=== PATIENT | female | born 1975 | race Caucasian/White ===

== ENCOUNTER 2016-05-23 10:18 | Emergency (ER) ==
[2016-05-23 10:31] VITALS: BP 138/88; TEMP 99.1; BMI 30.4
[2016-05-23] MEDS ORDERED: TORADOL IM STA (11:06)
--- NOTE | 2016-05-23 11:10 | ED.PDOC ---
General ED Provider: Dr. ROZINA GARRISON Chief Complaint: Shoulder Pain/Injury Stated Complaint: shoulder pain Time Seen by Physician: 10:20 (moving furniture) Mode of Arrival: Walk-In Information Source: Patient Exam Limitations: No limitations [facility] and Triage Documentation Reviewed and Agree: Yes Trauma/Injury Complaint Exam - Trauma Complaint/Exam Location of Pain or Injury: Reports: Other (right shoulder ) Symptoms Are: Still present Timing of Treatment: Hours Initial Severity: Moderate Current Severity: Moderate Aggravating: Reports: None Alleviating: Reports: None Associated Signs and Symptoms: Denies: LOC, Confusion, Memory loss, Lethargy, Vomiting, Bleeding, Bruising (occured after moving funiture 1 day ago), Swelling , Extremity disuse, Painful respiration, Hoarseness, Dysphagia, Hemoptysis, Significant blood loss Review of Systems - Review Of Systems Constitutional: Reports: No symptoms Eyes: Reports: No symptoms Ears, Nose, Mouth, Throat: Reports: No symptoms Respiratory: Reports: No symptoms Cardiac: Reports: No symptoms GI: Reports: No symptoms : Reports: No symptoms Musculoskeletal: Reports: Joint pain (left shoulder ) Skin: Reports: No symptoms Neurological: Reports: No symptoms Endocrine: Reports: No symptoms Hematologic/Lymphatic: Reports: No symptoms All Other Systems: Reviewed and Negative Past Medical History - Past Medical History Endocrine: Reports: None Cardiovascular: Reports: None Respiratory: Reports: None Hematological: Reports: None Gastrointestinal: Reports: Other (IBS) Genitourinary: Reports: None Neuro/Psych: Reports: Other (RLS) Musculoskeletal: Reports: None Cancer: Reports: None Last Menstrual Period: 2 weeks - Surgical History General Surgical History: Reports: ( X 1) - Family History Family History: Reports: Hypertension, Other (chol) - Social History Smoking Status: Never smoker Hx Substance Use: No Alcohol Screening: None Physical Exam - Physical Exam Appearance: Well-appearing, No pain distress, Well-nourished Eyes: MARIA L, EOMI, Conjunctiva clear ENT: Ears normal, Nose normal, Oropharynx normal Respiratory: Airway patent, Breath sounds clear, Breath sounds equal, Respirations nonlabored Cardiovascular: RRR, Pulses normal, No rub, No murmur GI/: Soft, Nontender, No masses, Bowel sounds normal, No Organomegaly Musculoskeletal: Normal strength, ROM intact, No edema, No calf tenderness Skin: Warm, Dry, Normal color Neurological: Sensation intact, Motor intact, Reflexes intact, Cranial nerves intact, Alert, Oriented Psychiatric: Affect appropriate, Mood appropriate Critical Care Note - Critical Care Note Total Time (mins): 0 Course - Course Orders, Labs, Meds: Orders Category Date Time Status Shoulder immobilizer [ED SPLINT APPLICATION] .ONCE EMERGENCY 05/23/16 11:05 Ordered Ketorolac Tromethamine [Toradol] MEDS 05/23/16 11:06 Stop Req 30 mg IM ONCE STA Vital Signs: Temp Pulse Resp BP Pulse Ox 05/23/16 10:19 99.1 F 73 20 138/88 98 Departure - Departure Time of Disposition: 11:10 Disposition: HOME SELF-CARE Discharge Problem: Shoulder pain Instructions: Shoulder Sprain (ED), Arthralgia (ED) Condition: Good Pt referred to PMD for follow-up: No Prescriptions: Hydrocodone/Acetaminophen [[place] 5-325 Tablet] 1 each PO Q6HR PRN #14 tablet PRN Reason: PAIN Allergies/Adverse Reactions: Allergies No Known Allergies Allergy (Verified 05/23/16 10:25) Home Medications: Ambulatory Orders Acetaminophen [Tylenol] 325 mg PO Q4HR PRN 08/31/14 Ibuprofen 200 mg PO Q6HR PRN 08/31/14 Hydrocodone/Acetaminophen [[place] 5-325 Tablet] 1 each PO Q6HR PRN #14 tablet 02/27
== END 2016-05-23 11:32 | disposition home or self-care (01) ==
LOC: ED 10:18
DX: M25.511 Pain in right shoulder (principal); X50.9XXA Other and unspecified overexertion or strenuous movements or postures, initial encounter
CPT/HCPCS: 99282

== ENCOUNTER 2016-08-07 11:57 | Outpatient (CLI) ==
[2016-08-07 12:24] LABS: FLU INTERNAL QC INTERNAL QC VALID; RAPID FLU A NEGATIVE (NEGATIVE); RAPID FLU B NEGATIVE (NEGATIVE)
== END 2016-08-07 11:58 | disposition home or self-care (01) ==
LOC: LAB 11:57
PROVIDERS: ATTEND Nurse Practitioner Family
DX: R50.9 Fever, unspecified (principal); R52 Pain, unspecified; R53.1 Weakness
CPT/HCPCS: 87651; 87804; 87880

== ENCOUNTER 2017-04-27 08:28 | Outpatient (CLI) ==
[2017-04-27 09:16] LABS: BASOPHILS # (AUTO) 0.1 K/uL (0-0.2); BASOPHILS % (AUTO) 1.2 % (0.0-3.0); EOSINOPHILS # (AUTO) 0.1 K/ul (0.0-0.7); EOSINOPHILS % (AUTO) 1.6 % (0.0-7.0); HEMATOCRIT 39.3 % (37.0-47.0); HEMOGLOBIN 12.8 g/dl (12.0-16.0); IMMATURE GRANULOCYTE % (AUTO) 0.2 % (0.0-5.0); LYMPHOCYTES # (AUTO) 1.5 K/uL (0.60-3.4); LYMPHOCYTES % (AUTO) 26.1 (10.0-50.0); MEAN CORPUSCULAR HEMOGLOBIN 28.9 pg (27.0-31.0); MEAN CORPUSCULAR HGB CONC 32.6 (31.8-35.4); MEAN CORPUSCULAR VOLUME 88.7 fl (81.0-99.0); MONOCYTES # (AUTO) 0.4 K/uL (0.4-2.0); MONOCYTES % (AUTO) 6.5 (0-10); NEUTROPHILS # (AUTO) 3.7 K/ul (2.0-6.9); NEUTROPHILS % (AUTO) 64.4; PLATELET COUNT 192 10^3/uL (140-440); RED BLOOD COUNT 4.43 10^6/ul (4.20-5.40); WHITE BLOOD COUNT 5.71 K/ul (4.6-10.2)
[2017-04-27 09:57] LABS: ALBUMIN 3.8 g/dL (3.4-5.0); ALBUMIN/GLOBULIN RATIO 1.19; ANION GAP 13.2; BILIRUBIN,TOTAL 1.48 mg/dL (0.00-1.20); BUN/CREATININE RATIO 21.51; CALCIUM 9.3 mg/dL (8.2-10.2); CHOL/HDL RATIO 4.1 (4.5-5.5); CREATININE 0.79 mg/dL (0.60-1.30); POTASSIUM 4.2 mmol/L (3.5-5.10)
== END 2017-04-27 08:29 | disposition home or self-care (01) ==
LOC: CAR 08:28
PROVIDERS: ATTEND Nurse Practitioner Family
DX: Z00.00 Encounter for general adult medical examination without abnormal findings (principal); R60.9 Edema, unspecified
CPT/HCPCS: 36415; 80053; 80061; 84443; 85025; 93005; 93010

== ENCOUNTER 2017-07-31 00:02 | Emergency (ER) ==
[2017-07-31 00:08] VITALS: BP 120/76; TEMP 98.6; BMI 35.2
[2017-07-31] MEDS ORDERED: DILAUDID 2 MG/ML SYRINGE IM STA (00:08)
[2017-07-31] MEDS ORDERED: SODIUM CHLORIDE 1,000 ML IV STA (00:08)
[2017-07-31] MEDS ORDERED: TORADOL IVP STA (00:08)
[2017-07-31] MEDS ORDERED: ZOFRAN 4 MG/2 ML IVP STA (00:08)
[2017-07-31] MEDS ORDERED: DILAUDID 1 MG/ML SYRINGE IVP STA (00:17)
--- NOTE | 2017-07-31 00:21 | ED.PDOC ---
General ED Provider: Dr. COSMO WINSLOW Chief Complaint: Abdominal Pain Stated Complaint: Patient is a 42 year old female who has a history of thickening of the uterus with dysfunctional uterine bleeding. She saw her OBGYN who told her to try a medication which she did but did not help. She went to see him today for severe constant suprapubic cramping that would not stop and was placed on [place] which she too but did not help. She is now scheduled to have a hysterectomy. Pain was intolorable tonight hence came to the ER. Time Seen by Physician: 00:18 Mode of Arrival: Walk-In Information Source: Patient Exam Limitations: No limitations [facility] Nursing and Triage Documentation Reviewed and Agree: Yes Reviewed sepsis parameters & appropriate labs ordered?: No System Inflammatory Response Syndrome: Not Applicable Sepsis Protocol: For patient's 13 years and over: Temp is 96.8 and below OR 101 and greater Pulse >90 BPM Resp >20/minute Acutely Altered Mental Status Are patient's symptoms suggestive of a new infection, such as: -Pneumonia -Skin, Soft Tissue -Endocarditis -UTI -Bone, Joint Infection -Implantable Device -Acute Abdominal Infection -Wound Infection -Meningitis -Blood Stream Catheter Infection -Unknown System Inflammatory Response Syndrome: Not Applicable GI Complaint Exam - Abdominal Pain Complaint/Exam Onset: Gradual Duration: few days ago Symptoms Are: Still present Timing: Constant Initial Severity: Moderate Current Severity: Severe Location of Pain: Suprapubic Character: Reports: Cramping Associated Signs and Symptoms: Reports: Nausea. Denies: Diaphoresis, Fever, Cough, Chest pain, Dizziness, Back pain, Constipation, Blood in stool, Dysuria, Urinary frequency, Decreased urine output, Decreased appetite, Vaginal bleeding , Vaginal discharge, Vomiting, Diarrhea, Sore throat, Decreased activity Related History: Reports: Similar episode [employer] History: Denies: Ectopic, Ovarian cyst, PID AAA Risk Factors: Reports: None Cardiac Risk Factors: Reports: None Ectopic Risk Factors: Reports: Tubal ligation Ovarian Torsion Risk Factors: Reports: Tubal ligation. Denies: Hysterectomy, w/ hx PID Surgical Obstruction Risk Factors: Reports: None Related Surgical History: Reports: Tubal ligation. Denies: Cholecystectomy, Appendectomy, AAA Repair, Gastric Bypass, Bowel Resection, Laparoscopy, Kidney Stones, ASHTYN, BSO Patient Rh Status: Unknown Abdominal Findings: Absent: Rebound tenderness (but diffuse tenderness to palpation. ) Review of Systems - Review Of Systems Constitutional: Reports: Loss of appetite Eyes: Reports: No symptoms Ears, Nose, Mouth, Throat: Reports: No symptoms Respiratory: Reports: No symptoms Cardiac: Reports: No symptoms GI: Reports: Abdominal pain, Nausea : Reports: No symptoms Musculoskeletal: Reports: No symptoms Skin: Reports: No symptoms Neurological: Reports: Anxiety Endocrine: Reports: No symptoms Hematologic/Lymphatic: Reports: No symptoms All Other Systems: Reviewed and Negative Past Medical History - Past Medical History Endocrine: Reports: None Cardiovascular: Reports: None Respiratory: Reports: None Hematological: Reports: None Gastrointestinal: Reports: Other (IBS) Genitourinary: Reports: Other (Thick uterus ) Neuro/Psych: Reports: Other (RLS) Musculoskeletal: Reports: None Cancer: Reports: None Last Menstrual Period: 1 MONTH AGO - Surgical History General Surgical History: Reports: Tubal ligation, ( X 1) - Family History Family History: Reports: Hypertension, Other (chol) - Social History Smoking Status: Never smoker Hx Substance Use: No Alcohol Screening: None - Immunizations Tetanus Shot up to Date: No Physical Exam - Physical Exam Appearance: Ill-appearing, Obese Ill-appearing: Mild Pain Distress: Severe Eyes: MARIA L, EOMI, Conjunctiva clear Neck: Supple Respiratory: Airway patent, Breath sounds clear, Breath sounds equal, Respirations nonlabored Cardiovascular: RRR, Pulses normal, No rub, No murmur GI/: Soft, Tender (diffusely worse on the suprapubic area) Musculoskeletal: Normal strength, ROM intact, No edema, No calf tenderness Skin: Warm, Dry, Normal color Neurological: Sensation intact, Motor intact, Reflexes intact, Cranial nerves intact, Alert, Oriented Psychiatric: Anxious Interpretation - Radiology Interpretation Radiology Interpretation By: ED Physician Radiology Results: No acute changes Exam Interpreted: CT Scan Re-Evaluation - Re-Evaluation Time of Re-Evaluation: 01:35 Status: Improved Pain Level: gone Critical Care Note - Critical Care Note Total Time (mins): 0 Course - Course Hematology/Chemistry: 07/31/17 00:20 07/31/17 00:20 Orders, Labs, Meds: Lab Review 07/31/17 07/31/17 07/31/17 00:20 00:20 00:20 WBC 11.96 H RBC 4.05 L Hgb 12.0 Hct 36.2 L MCV 89.4 MCH 29.6 MCHC 33.1 RDW Coeff of Giovanni 12.7 Plt Count 177 Immature Gran % (Auto) 0.4 Neut % (Auto) 83.2 Lymph % (Auto) 11.0 Maury % (Auto) 4.3 Eos % (Auto) 0.6 Baso % (Auto) 0.5 Immature Gran # (Auto) 0.1 Neut # (Auto) 9.9 H Lymph # (Auto) 1.3 Maury # (Auto) 0.5 Eos # (Auto) 0.1 Baso # (Auto) 0.1 Sodium 140 Potassium 3.7 Chloride 105 Carbon Dioxide 26 Anion Gap 12.7 BUN 11 Creatinine 0.78 Estimated GFR (MDRD) 81.00 BUN/Creatinine Ratio 14.10 Glucose 120 H Calcium 9.2 Total Bilirubin 0.9 AST 15 ALT 23 Alkaline Phosphatase 94 Total Protein 6.5 Albumin 3.5 Globulin 3.0 Albumin/Globulin Ratio 1.17 Amylase 20 L Lipase 11 Urine Color Yellow Urine Clarity Clear Urine pH 5.0 Ur Specific [place] >=1.030 Urine Protein Trace Urine Glucose (UA) Negative Urine Ketones Trace Urine Blood Negative Urine Nitrite Negative Urine Bilirubin 1+ Urine Urobilinogen 1.0 Ur Leukocyte Esterase Negative Urine Microscopic WBC 0-2 Ur Squamous Epith Cells 5-10 Urine Bacteria Trace Urine Mucus 2+ Urine Test 07/31/17 00:20 WBC RBC Hgb Hct MCV MCH MCHC RDW Coeff of Giovanni Plt Count Immature Gran % (Auto) Neut % (Auto) Lymph % (Auto) Maury % (Auto) Eos % (Auto) Baso % (Auto) Immature Gran # (Auto) Neut # (Auto) Lymph # (Auto) Maury # (Auto) Eos # (Auto) Baso # (Auto) Sodium Potassium Chloride Carbon Dioxide Anion Gap BUN Creatinine Estimated GFR (MDRD) BUN/Creatinine Ratio Glucose Calcium Total Bilirubin AST ALT Alkaline Phosphatase Total Protein Albumin Globulin Albumin/Globulin Ratio Amylase Lipase Urine Color Urine Clarity Urine pH Ur Specific [place] Urine Protein Urine Glucose (UA) Urine Ketones Urine Blood Urine Nitrite Urine Bilirubin Urine Urobilinogen Ur Leukocyte Esterase Urine Microscopic WBC Ur Squamous Epith Cells Urine Bacteria Urine Mucus Urine Test Negative Orders Category Date Time Status ED IV/MEDIPORT/POWERPORT .ONCE EMERGENCY 07/31/17 00:08 Active AMYLASE Stat LAB 07/31/17 00:20 Completed CBC W/ AUTO DIFF Stat LAB 07/31/17 00:20 Completed COMPREHENSIVE METABOLIC PANEL Stat LAB 07/31/17 00:20 Completed LIPASE Stat LAB 07/31/17 00:20 Completed UA [URINALYSIS C & S IF INDICATED] Stat LAB 07/31/17 00:20 Completed URINE Stat LAB 07/31/17 00:20 Completed 0.9 % Sodium Chloride [Saline Flush] MEDS 07/31/17 00:08 Ordered 1 syr IVF PRN PRN Hydromorphone HCl [Dilaudid 1 mg/ml Syringe] MEDS 07/31/17 00:17 Discontinued 1 mg IVP ONCE STA Ketorolac Tromethamine [Toradol] MEDS 07/31/17 00:08 Discontinued 30 mg IVP ONCE STA Ondansetron HCl/Pf [Zofran 4 mg/2 ml] MEDS 07/31/17 00:08 Discontinued 4 mg IVP ONCE STA Sodium Chloride 0.9% [Sodium Chloride] 1,000 ml MEDS 07/31/17 00:[address] ABD/PEL WO RENAL STONE PROT Stat RADS 07/31/17 00:06 Completed Medications Generic Name Dose Route Start Last Admin Trade Name Freq PRN Reason Stop Dose Admin Sodium Chloride 1 syr 07/31/17 00:08 Saline Flush IVF PRN PRN To flush IV Discontinued Medications Generic Name Dose Route Start Last Admin Trade Name Freq PRN Reason Stop Dose Admin Hydromorphone HCl 1 mg 07/31/17 00:17 07/31/17 00:59 Dilaudid 1 Mg/Ml Syringe IVP 07/31/17 00:18 1 mg ONCE STA Administration Sodium Chloride 1,000 mls @ 1,000 mls/hr 07/31/17 00:08 07/31/17 00:58 Sodium Chloride IV 07/31/17 01:07 1,000 mls/hr BOLUS STA Administration Ketorolac Tromethamine 30 mg 07/31/17 00:08 07/31/17 00:58 Toradol IVP 07/31/17 00:09 30 mg ONCE STA Administration Ondansetron HCl 4 mg 07/31/17 00:08 07/31/17 00:58 Zofran 4 Mg/2 Ml IVP 07/31/17 00:09 4 mg ONCE STA Administration Vital Signs: Temp Pulse Resp BP Pulse Ox 07/31/17 00:02 98.6 F 81 18 120/76 98 Departure - Departure Time of Disposition: 01:24 Disposition: HOME SELF-CARE Discharge Problem: Abdominal pain, Endometrial thickening on ultra sound Instructions: Acute Abdominal Pain (ED) Condition: Fair Pt referred to PMD for follow-up: Yes IPMP verified?: No Additional Instructions: Continue taking Home medications for pain Keep Apt with OBGYN for your Hysterectomy . Prescriptions: Oxycodone-Acetaminophe 7.5-325 [Percocet 7.5-325] 1 tab PO Q6H #25 tablet Allergies/Adverse Reactions: Allergies No Known Allergies Allergy (Verified 07/31/17 00:08) Home Medications: Ambulatory Orders Acetaminophen [Tylenol] 325 mg PO Q4HR PRN 08/31/14 Ibuprofen 200 mg PO Q6HR PRN 08/31/14 Hydrocodone/Acetaminophen [[place] 5-325 Tablet] 1 each PO QID MDD PAIN 07/31/17 Oxycodone-Acetaminophe 7.5-325 [Percocet 7.5-325] 1 tab PO Q6H #25 tablet Tranexamic Acid [Lysteda] 2 tab PO TID PRN 07/31/17 Disposition Discussed With: Patient, Family
--- NOTE | 2017-07-31 01:02 | CT ---
EXAM: CT scan abdomen pelvis without contrast HISTORY: Flank pain COMPARISON: CT scan abdomen pelvis 04/28/2015 FINDINGS: Contiguous axial images obtained through the abdomen pelvis without contrast utilizing 3-m m collimation. Sagittal and coronal reconstructions were imaged and reviewed. Redemonstrated is a 1 3 mm left hepatic cyst. Lung bases are clear. The gallbladder is fluid filled without cholelithiasi s. There are benign granulomatous changes seen in the spleen. The pancreas and adrenal glands have normal unenhanced CT appearance. The kidneys are morphologically normal. There is a normal appendi x. There is a 3.3 cm right adnexal cyst. There is no free fluid.. Bone windows reveals no evidence of lytic or blastic lesions. IMPRESSION: Stable left hepatic cyst. There is no evidence of nephrolithiasis or ureterolithiasis. Right adnexal cyst without free fluid
== END 2017-07-31 01:50 | disposition home or self-care (01) ==
LOC: ED 00:02
DX: R10.30 Lower abdominal pain, unspecified (principal); N85.00 Endometrial hyperplasia, unspecified
CPT/HCPCS: 36415; 74176; 80053; 81001; 81025; 82150; 83690; 85025; 96361; 96374; 96375; 99283

== ENCOUNTER 2018-01-01 08:16 | Outpatient (POV) | END 2018-01-01 17:00 | LOC: OUTPT 08:16 | PROVIDERS: ATTEND Otolaryngology | DX: H93.19 Tinnitus, unspecified ear (principal) ==

== ENCOUNTER 2018-08-08 20:05 | Emergency (ER) ==
[2018-08-08 20:09] VITALS: TEMP 98.5; BMI 37.7
--- NOTE | 2018-08-08 20:27 | ED.PDOC ---
General ED Provider: Dr. COSMO WINSLOW Chief Complaint: Foot Pain/Injury Stated Complaint: patient complains of right Lateral ankle and foot pain and swelling for few days. Has a history of [place] but most of the pain is on the ankle area not the planta. Took Ibuprofren prior to arrival. Time Seen by Physician: 20:25 Mode of Arrival: Walk-In Information Source: Patient Primary Care Provider: CLAUDIA LEYVA Nursing and Triage Documentation Reviewed and Agree: Yes Does patient meet sepsis criteria?: No System Inflammatory Response Syndrome: Not Applicable Sepsis Protocol: For patient's 13 years and over: Temp is 96.8 and below OR 101 and greater Pulse >90 BPM Resp >20/minute Acutely Altered Mental Status Are patient's symptoms suggestive of a new infection, such as: -Pneumonia -Skin, Soft Tissue -Endocarditis -UTI -Bone, Joint Infection -Implantable Device -Acute Abdominal Infection -Wound Infection -Meningitis -Blood Stream Catheter Infection -Unknown Review of Systems - Review Of Systems Constitutional: Reports: No symptoms Eyes: Reports: No symptoms Ears, Nose, Mouth, Throat: Reports: No symptoms Respiratory: Reports: No symptoms Cardiac: Reports: No symptoms GI: Reports: No symptoms : Reports: No symptoms Musculoskeletal: Reports: Joint pain, Joint swelling Skin: Reports: No symptoms Neurological: Reports: Anxiety Endocrine: Reports: No symptoms Hematologic/Lymphatic: Reports: No symptoms All Other Systems: Reviewed and Negative Past Medical History - Past Medical History Endocrine: Reports: None Cardiovascular: Reports: None Respiratory: Reports: None Hematological: Reports: None Gastrointestinal: Reports: Other (IBS) Genitourinary: Reports: Other (Thick uterus ) Neuro/Psych: Reports: Other (RLS) Musculoskeletal: Reports: None Cancer: Reports: None Last Menstrual Period: N/A - Surgical History General Surgical History: Reports: Tubal ligation, ( X 1) - Family History Family History: Reports: Hypertension, Other (chol) - Social History Smoking Status: Never smoker Hx Substance Use: No Alcohol Screening: None - Immunizations Tetanus Shot up to Date: No Physical Exam - Physical Exam Appearance: Well-appearing, Obese Ill-appearing: Mild Neck: Supple Respiratory: Airway patent, Breath sounds clear, Breath sounds equal, Respirations nonlabored Cardiovascular: RRR, Pulses normal, No rub, No murmur Musculoskeletal: Edema (right foot and ankle area) Skin: Warm Neurological: Sensation intact, Alert, Oriented Psychiatric: Anxious (appears overwhelmed. ( family situation caring for ailing father) ) Interpretation - Radiology Interpretation Radiology Interpretation By: ED Physician Radiology Results: Negative Exam Interpreted: Other (foot and ankle x ray ) Critical Care Note - Critical Care Note Total Time (mins): 0 Course - Course Orders, Labs, Meds: Orders Category Date Time Status ANKLE, RIGHT MIN 3 VIEWS Stat RADS 08/08/18 20:24 Completed FOOT, RIGHT 3 VIEWS Stat RADS 08/08/18 20:24 Completed Vital Signs: Temp Pulse Resp BP Pulse Ox 08/08/18 21:12 127/82 08/08/18 20:06 98.5 F 95 H 18 164/93 H 97 Departure - Departure Time of Disposition: 21:12 Disposition: HOME SELF-CARE Discharge Problem: Injury of foot Ankle sprain Qualifiers: Encounter type: initial encounter Involved ligament of ankle: unspecified ligament Laterality: right Qualified Code(s): S93.401A - Sprain of unspecified ligament of right ankle, initial encounter Instructions: Ankle Sprain (ED), Foot Sprain (ED) Condition: Fair Pt referred to PMD for follow-up: Yes IPMP verified?: Yes (no recent Narcotis ) Additional Instructions: Keep foot elevated Continue Motrin as needed for pain Allergies/Adverse Reactions: Allergies No Known Allergies Allergy (Verified 08/08/18 20:07) Disposition Discussed With: Patient, Family
--- NOTE | 2018-08-08 20:52 | DI ---
Exam: Right foot three-view HISTORY: Injury and pain Findings / impression: No bony or articular abnormality. Negative exam.
--- NOTE | 2018-08-08 20:54 | DI ---
Exam: Three views of the right ankle. Comparison: Right foot x-rays performed 02/14/2016. Reason for exam: Lateral ankle and foot pain. FINDINGS: No acute fracture or malalignment. The talar dome appears intact. No abnormal widening o f the medial or lateral clear space. Impression: No acute fracture or dislocation in the right ankle.
[2018-08-08 21:13] VITALS: BP 127/82
== END 2018-08-08 21:15 | disposition home or self-care (01) ==
LOC: ED 20:05
DX: S93.401A Sprain of unspecified ligament of right ankle, initial encounter (principal); X50.1XXA Overexertion from prolonged static or awkward postures, initial encounter
CPT/HCPCS: 99283

== ENCOUNTER 2018-08-20 09:01 | Outpatient (CLI) ==
--- NOTE | 2018-08-21 10:59 | MAMMO ---
EXAM: Bilateral digital screening mammogram (2-D and 3-D) History: Screening Comparison: Bilateral mammogram 03/23/2017 Findings: MLO and CC views of bilateral breasts demonstrate heterogeneously dense breast parenchyma which can obscure small lesions. CAD was reviewed by the radiologist. Tomosynthesis was performed. There are no dominant masses, no suspicious microcalcifications and no architectural distortions Impression: Stable negative mammogram. Recommend followup routine screening mammography in 1 year. BIRADS 1, negative
== END 2018-08-20 09:02 | disposition home or self-care (01) ==
LOC: RAD 09:01
PROVIDERS: ATTEND Nurse Practitioner Family
DX: Z12.31 Encounter for screening mammogram for malignant neoplasm of breast (principal)